=== PATIENT | female | born 1955 | race Caucasian/White ===

== ENCOUNTER 2017-09-22 12:56 | Day surgery (SDC) | payer OTHER ==
[2017-09-22] MEDS ORDERED: FENTAnyl 50 MCG/ML VIAL (15:08)
[2017-09-22] MEDS ORDERED: MIDAZOLAM 1 MG/ML 2 ML INJ ×2 (15:08)
== END 2017-09-22 16:36 | disposition home or self-care (01) ==
LOC: GIL 12:56
DX: D12.0 Benign neoplasm of cecum (principal); K62.1 Rectal polyp; K57.90 Diverticulosis of intestine, part unspecified, without perforation or abscess without bleeding; Z12.11 Encounter for screening for malignant neoplasm of colon; E11.9 Type 2 diabetes mellitus without complications; E78.5 Hyperlipidemia, unspecified; Z85.3 Personal history of malignant neoplasm of breast
CPT/HCPCS: 45380; 82962; 88305